=== PATIENT | female | born 1940 | race Two or more races ===

== ENCOUNTER 2022-10-21 23:36 | Emergency (ER) | payer MEDICARE, OTHER ==
[~2022-10-21] VITALS: Ht 144.8 cm; Wt 68.0 kg
--- NOTE | 2022-10-22 00:15 | NUR ---
Migue AOx4, able to express her concerns. Migue states she woke up today feeling all weakness all overbody, headache and shaking more than normal. Discussed plan of care, patient verbalized agreement. MD at bedside assessing patient. All safety precautions taken.
[2022-10-22] MEDS ORDERED: BACLOFEN (10 MG) 10 MG TABLET ONE (00:25)
[2022-10-22] MEDS ORDERED: BACLOFEN (10 MG) 10 MG TABLET PO ONE (00:30)
--- NOTE | 2022-10-22 00:48 | NUR ---
Pt out for imaging
--- NOTE | 2022-10-22 01:11 | NUR ---
Labs and Urine collected, sent to lab
[2022-10-22 01:15] LABS: BASOPHILS # (AUTO) 0.1 K/uL (0.0-0.2); EOSINOPHILS % (AUTO) 1.3 % (0.0-6.0); HEMATOCRIT 44 % (33-45); LYMPHOCYTES # (AUTO) 2.5 K/uL (0.8-4.8); LYMPHOCYTES % (AUTO) 30.8 % (20.0-44.0); MEAN CORPUSCULAR HGB CONC 32 g/dl (31.0-36.0); MEAN CORPUSCULAR VOLUME 88 fL (82-100); MONOCYTES # (AUTO) 0.7 K/uL (0.1-1.30); MONOCYTES % (AUTO) 9.1 % (2.0-12.0); NEUTROPHILS # (AUTO) 4.7 K/uL (1.8-8.9); NEUTROPHILS % (AUTO) 57.8 % (43.0-81.0); PLATELET COUNT (AUTO) 275 K/uL (150-450); RED BLOOD CELL COUNT(AUTO) 5.04 MIL/uL (4.0-5.2); WHITE BLOOD COUNT (AUTO) 8.1 K/uL (4.3-11.0)
[2022-10-22 01:26] LABS: ALANINE AMINOTRANSFERASE 22 U/L (12-78); ALBUMIN 3.2 g/dL (3.4-5.0); ALKALINE PHOSPHATASE 106 U/L (46-116); ASPARTATE AMINOTRANSFERASE 21 U/L (15-37); BILIRUBIN,DIRECT 0.1 mg/dL (0.0-0.2); BILIRUBIN,TOTAL 0.4 mg/dL (0.2-1.0); CALCIUM, SERUM 9.2 mg/dL (8.5-10.1); CARBON DIOXIDE 20 mmol/L (21-32); CHLORIDE 108 mmol/L (98-107); CREATININE 0.5 mg/dL (0.6-1.3); GLUCOSE 151 mg/dL (74-106); POTASSIUM 4.4 mmol/L (3.5-5.1); SODIUM SERUM 140 mmol/L (136-145); TOTAL PROTEIN, SERUM 7.1 g/dL (6.4-8.2); UREA NITROGEN, BLOOD 15 mg/dL (7-18)
[2022-10-22 01:35] LABS: BACTERIA,URINE Few /HPF (None Seen); BILIRUBIN,URINE NEGATIVE (NEGATIVE); COLOR,URINE YELLOW (YELLOW); LEUKOCYTE ESTERASE ,URINE 1+ (NEGATIVE); NITRITE, URINE NEGATIVE (NEGATIVE); PROTEIN,URINE NEGATIVE (NEGATIVE); RBC,URINE 0-2 /HPF (0-2); SQUAMOUS EPITHELIAL CELL,UR Few /HPF (None Seen); UGLUCOSE 3+ mg/dL (NEGATIVE); UROBILINOGEN,URINE 0.2 EU/dL (0.2)
--- NOTE | 2022-10-22 02:43 | NUR ---
VIDEO GAME TESTER AT BEDSIDE
[2022-10-22] MEDS ORDERED: AMOX/CLAVULANATE 875 MG TABLET PO ONE (03:30)
[2022-10-22] MEDS ORDERED: AMOX-430 PO (03:38)
--- NOTE | 2022-10-22 03:42 | NUR ---
[facility] CALLED FOR BLS GOING BACK TO [facility] PER [facility] ETA 45 MIN
[2022-10-22] MEDS ORDERED: AMOX/CLAVULANATE 875 MG TABLET ONE (03:45)
[2022-10-22 04:49] VITALS: BP 122/76
== END 2022-10-22 04:50 | disposition home or self-care (01) ==
LOC: ER 23:37
DX: R53.1 Weakness (principal); G20 Parkinson's disease; Z87.440 Personal history of urinary (tract) infections; Z87.75 Personal history of (corrected) congenital malformations of respiratory system; Z60.2 Problems related to living alone
CPT/HCPCS: 36415; 70450-TC; 71045-TC; 80048-TC; 80076-TC; 81001; 82962-TC; 84484-TC; 85025-TC; 85730-TC; 87086-TC